=== PATIENT | female | born 1995 | race Caucasian/White ===

== ENCOUNTER → 2019-05-19 15:10 | Observation (INO) ==
[2019-05-19 15:44] LABS: Bilirubin,Urine Negative (Negative); Blood,Urine Negative (Negative); Color,Urine Yellow (Yellow); Glucose,Urine (UA) Normal (Normal); Ketones,Urine Negative (Negative); Leukocyte Esterase,Urine Negative (Negative); Nitrite,Urine Negative (Negative); Protein,Urine Negative (Neg-Trace); Specific Gravity,Urine 1.018 (1.010-1.025); Urobilinogen,Urine Normal (Normal)
[2019-05-19 15:48] LABS: Bacteria,Urine None Seen per hpf (None-Few); Hyaline Casts,Urine None Seen per lpf (None-Few); RBC,Urine 0-3 per hpf (0-3); Squamous Epithelial Cell,Urine Many per lpf (None-Few)
[2019-05-19 15:54] LABS: Clarity,Urine Hazy (Clear)
== END | disposition home or self-care (01) ==
LOC: 1NENULAB
PROVIDERS: ADMIT Obstetrics & Gynecology; ATTEND Obstetrics & Gynecology

== ENCOUNTER 2019-11-03 05:45 | Inpatient (IN) ==
[2019-11-03] MEDS ORDERED: Metoclopramide 10 MG/2 ML VIAL IVP ONE (06:21)
[2019-11-03] MEDS ORDERED: Oxytocin 20 units/ LR 1000 mL 20 UNIT/1,000 ML BAG IVC ONE (06:21)
[2019-11-03] MEDS ORDERED: CeFAZolin 2,000 MG/50 ML BAG IVPB ONE (06:21)
[2019-11-03] MEDS ORDERED: Ringers Solution, Lactated 1,000 ML IVC ONE (06:21)
[2019-11-03] MEDS ORDERED: Famotidine 20 MG/2 ML VIAL IVP ONE (06:21)
[2019-11-03] MEDS ORDERED: Ringers Solution, Lactated 1,000 ML IVC SCH (06:30)
[2019-11-03] MEDS ORDERED: Oxytocin 20 units/ LR 1000 mL 20 UNIT/1,000 ML BAG IVC SCH ×2 (06:30→15:25)
[2019-11-03] MEDS ORDERED: *HR* Morphine Sulfate/PF 10 MG/10 ML AMPUL ONE (06:34)
[2019-11-03] MEDS ORDERED: *HR* FentaNYL (PF) 100 MCG/2 ML VIAL ONE (06:34)
[2019-11-03] MEDS ORDERED: *HR* Oxytocin 10 UNIT/ML VIAL IM ONE ×2 (06:34→08:26)
[2019-11-03 06:38] LABS: Amphetamine Screen,Urine Negative ng/mL (Cutoff=1000); Barbiturate Screen,Urine Negative ng/mL (Cutoff=200)
[2019-11-03] MEDS ORDERED: *HR* Phenylephrine 10 MG/ML VIAL ONE (06:38)
[2019-11-03 06:39] LABS: Benzodiazepines Screen,Urine Negative ng/mL (Cutoff=300); Cannabinoid Screen,Urine Negative ng/mL (Cutoff = 50); Cocaine Screen,Urine Negative ng/mL (Cutoff= 300); Opiate Screen,Urine Negative ng/mL (Cutoff=300); Phencyclidine Screen,Urine Negative ng/mL (Cutoff=25)
[2019-11-03 06:44] LABS: Basophils % 0.2 %; Eosinophils # 0.1 K/mcL (0.0-0.6); Hematocrit 34.7 % (35.3-44.9); Hemoglobin 11.7 g/dL (11.5-15.4); Immature Granulocytes % 1.2 % (0-4); Lymphocytes # 2.2 K/mcL (0.6-4.6); Lymphocytes % 20.4 %; Mean Corpuscular HGB Conc 33.7 g/dL (31.6-35.5); Mean Corpuscular Hemoglobin 30.5 pg (28.0-33.3); Mean Corpuscular Volume 90.6 fL (83.0-100.0); Mean Platelet Volume 10.9 fL (9.4-12.4); Monocytes # 1.1 K/mcL (0.0-1.3); Monocytes % 10.1 %; Neutrophils # 7.3 K/mcL (1.6-8.9); Platelet Count 233 K/mcL (140-400); Red Blood Count 3.83 M/mcL (3.82-4.97); Red Cell Distribution Width 13.2 % (11.5-14.5); Segmented Neutrophils % 67.1 %; White Blood Count 10.9 K/mcL (4.3-11.1)
[2019-11-03] MEDS ORDERED: EPHEDrine 50 MG/ML VIAL ONE (07:26)
[2019-11-03] MEDS ORDERED: Acetaminophen IV 1,000 MG/100 ML INFUS..BTL ONE (07:27)
[2019-11-03] MEDS ORDERED: Ondansetron 4 MG/2 ML VIAL ONE (07:27)
[2019-11-03] MEDS ORDERED: *HR* OxyCODONE Immed Rel 5 MG TABLET PO PRN (08:31)
[2019-11-03] MEDS ORDERED: Ondansetron 4 MG/2 ML VIAL IVP ONE (08:31)
[2019-11-03] MEDS ORDERED: *HR* Promethazine 25 MG/ML VIAL IVP PRN (08:31)
[2019-11-03] MEDS ORDERED: *HR* HYDROmorphone PF 0.5 MG/0.5 ML SYRINGE IVP PRN (08:31)
[2019-11-03] MEDS ORDERED: IRON FUM PO SCH (15:25)
[2019-11-03] MEDS ORDERED: [UNRECOGNIZED DRUG - OTHER] PO SCH (15:25)
[2019-11-03] MEDS ORDERED: PRENATAL VITS96 PO SCH (15:25)
[2019-11-03] MEDS ORDERED: Simethicone 80 MG TAB.CHEW PO PRN (15:25)
[2019-11-03] MEDS ORDERED: Sennosides 8.6 MG TABLET PO PRN (15:25)
[2019-11-03] MEDS ORDERED: Ondansetron 4 MG/2 ML VIAL IVP PRN (15:25)
[2019-11-03] MEDS ORDERED: Metoclopramide 10 MG/2 ML VIAL IVP PRN (15:25)
[2019-11-03] MEDS: metroNIDAZOLE 500 MG TABLET PO SCH ×2 (15:53→20:10)
[2019-11-03] MEDS: ceFAZolin 2,000 MG in Water for inj. (sterile) 10 ML IVP SCH ×2 (15:53→23:35)
[2019-11-03] MEDS: Prenatal Vit/FA 1 EACH TABLET PO SCH (15:54)
[2019-11-03] MEDS: Ibuprofen 600 MG TABLET PO PRN (20:10)
[2019-11-04] MEDS: *HR* OxyCODONE/APAP 5/325 TABLET PO PRN ×2 (06:17→14:16)
[2019-11-04 06:36] LABS: Basophils % 0.3 %; Eosinophils # 0.1 K/mcL (0.0-0.6); Eosinophils % 0.7 %; Hematocrit 34.5 % (35.3-44.9); Hemoglobin 11.4 g/dL (11.5-15.4); Immature Granulocytes % 0.7 % (0-4); Lymphocytes # 1.2 K/mcL (0.6-4.6); Lymphocytes % 8.5 %; Mean Corpuscular Hemoglobin 29.9 pg (28.0-33.3); Mean Corpuscular Volume 90.6 fL (83.0-100.0); Mean Platelet Volume 10.6 fL (9.4-12.4); Monocytes # 1.5 K/mcL (0.0-1.3); Monocytes % 10.7 %; Neutrophils # 10.9 K/mcL (1.6-8.9); Platelet Count 195 K/mcL (140-400); Red Blood Count 3.81 M/mcL (3.82-4.97); Red Cell Distribution Width 13.2 % (11.5-14.5); Segmented Neutrophils % 79.1 %; White Blood Count 13.8 K/mcL (4.3-11.1)
[2019-11-04] MEDS: metroNIDAZOLE 500 MG TABLET PO SCH ×2 (07:39→14:17)
[2019-11-04] MEDS: ceFAZolin 2,000 MG in Water for inj. (sterile) 10 ML IVP SCH (07:39)
[2019-11-04] MEDS: Prenatal Vit/FA 1 EACH TABLET PO SCH (07:39)
[2019-11-04 08:19] VITALS: BP 115/62
[2019-11-04] MEDS: Ibuprofen 600 MG TABLET PO PRN (11:30)
== END 2019-11-04 19:47 | disposition home or self-care (01) | DRG 788 ==
LOC: 1NENULAB 05:47 → 1NENUOBS 11:14
PROVIDERS: ADMIT Obstetrics & Gynecology; ATTEND Obstetrics & Gynecology